=== PATIENT | male | born 1970 | race Two or more races ===

== ENCOUNTER 2019-08-29 18:27 | Emergency (ER) | payer SELFPAY ==
[~2019-08-29] VITALS: Ht 170.2 cm; Wt 86.2 kg
--- NOTE | 2019-08-29 18:31 | NUR ---
PT DUYEN LANDRY 89 From Home "Room mates called he was passed out known alcoholic" PT IS AAOX2, NOT IN RESPIRATORY DISTRESS, HOOKED TO MONITOR, KEPT RESTED AND COMFORTABLE, AWAITING ER MD FOR EVAL, WILL CONTINUE TO MONITOR.
[2019-08-29] MEDS ORDERED: IV NS 0.9% 1,000 ML BAG IV ONE ×2 (19:00→21:00)
--- NOTE | 2019-08-29 19:18 | NUR ---
PT BROUGHT TO CT.
--- NOTE | 2019-08-29 19:33 | NUR ---
PT BROUGHT BACK FROM CT.
--- NOTE | 2019-08-29 19:50 | NUR ---
BLOOD COLLECTED AND SENT TO LAB. [facility] AT BEDSIDE FOR BLOOD COLLECTION.
--- NOTE | 2019-08-29 19:55 | NUR ---
UPON RETURN FROM RADIOLOGY, PT SMELLS OF BM. UPON REMOVING PANTS, NOTED THAT HIS SCROTUM AND PENNIS IS SWOLLEN AND DISCOLORAED. NOTED BLACK SCROTUM AND TIP OF PENNIS IS BLACK WELL. PERINEAL REDNESS NOTED WHICH IS EXTENDING TO THE RLQ ABDOMEN TO THE FLANK AREA. MD WAS CALLED TO BEDSIDE FOR EVAL. ORDERS RECEIVED NOTED CARRIED OUT.
[2019-08-29 19:58] LABS: BASOPHILS % (AUTO) 0.1 % (0.0-2.0); EOSINOPHILS % (AUTO) 0.1 % (0.0-6.0); HEMATOCRIT 48 % (39-51); HEMOGLOBIN 16.2 g/dL (13.5-17.5); LYMPHOCYTES # (AUTO) 0.3 /CMM (0.8-4.8); LYMPHOCYTES % (AUTO) 2.2 % (20.0-44.0); MEAN CORPUSCULAR HGB CONC 34 g/dl (31.0-36.0); MEAN CORPUSCULAR VOLUME 97 fL (80-96); MONOCYTES % (AUTO) 0.3 % (2.0-12.0); NEUTROPHILS # (AUTO) 13.1 /CMM (1.8-8.9); NEUTROPHILS % (AUTO) 97.3 % (43.0-81.0); WHITE BLOOD COUNT (AUTO) 13.5 K/uL (4.3-11.0)
[2019-08-29 20:21] LABS: ALANINE AMINOTRANSFERASE 97 U/L (12-78); ALBUMIN 1.8 g/dL (3.4-5.0); ALKALINE PHOSPHATASE 76 U/L (46-116); ASPARTATE AMINOTRANSFERASE 154 U/L (15-37); BILIRUBIN,DIRECT 1.6 mg/dL (0.0-0.2); BILIRUBIN,TOTAL 2.8 mg/dL (0.2-1.0); CALCIUM, SERUM 7.9 mg/dL (8.5-10.1); CARBON DIOXIDE 17 mmol/L (21-32); CHLORIDE 84 mmol/L (98-107); CREATININE 2.8 mg/dL (0.6-1.3); GLUCOSE 165 mg/dL (74-106); POTASSIUM 4.1 mmol/L (3.5-5.1); SERUM AMMONIA 155 umol/L (11-32); TOTAL PROTEIN, SERUM 7.2 g/dL (6.4-8.2)
[2019-08-29] MEDS ORDERED: VANCOMYCIN 1 GM VIAL ONE (20:22)
[2019-08-29] MEDS ORDERED: PIPERACILLIN /TAZOBACTAM 3.375 G VIAL IV ONE (20:22)
--- NOTE | 2019-08-29 20:23 | NUR ---
[facility] CALLED. NO BEDS AVAILABLE. ER ON [facility].
--- NOTE | 2019-08-29 20:23 | NUR ---
CALLED [facility] SPOKE TO KAYKAY REGARDING [facility] STATES NO EMERGENCY SURGERY SERVICES AVAILABLE AT NIGHT.
--- NOTE | 2019-08-29 20:26 | NUR ---
XRAY AT BEDSIDE
[2019-08-29] MEDS ORDERED: PIPERACILLIN /TAZOBACTAM 3.375 G in IV D5W 50 ML IV ONE (20:30)
[2019-08-29] MEDS ORDERED: VANCOMYCIN 1 GM in IV D5W 250 ML IV ONE (20:30)
--- NOTE | 2019-08-29 20:30 | NUR ---
CALLED [facility] SPOKE TO KEANU REGARDING [facility] STATES NO UROLOGY SERVICE AVAILABLE.
--- NOTE | 2019-08-29 20:30 | NUR ---
ADDENDUM: Intravenous End Time Documentation: Zosyn 3.375 gram IVPB: start time:2029 ; end time: 2099 : IV site: # 20 Port # 1
--- NOTE | 2019-08-29 20:30 | NUR ---
BLOOD CULTURES COLLECTED AND SENT TO LAB. PT BROUGHT TO CT.
--- NOTE | 2019-08-29 20:31 | NUR ---
CALL [facility] SPOKE TO [facility] ([facility]) STATES NO ICU BED AVAILABLE.
[2019-08-29] MEDS ORDERED: CT SWABBABLE VALVE TRANS SET 1 EA INFUS.SET MC ONE (20:32)
[2019-08-29] MEDS ORDERED: IOHEXOL-300 100 ML VIAL IV ONE (20:32)
[2019-08-29] MEDS ORDERED: IV NS 0.9% 250 ML IV ONE (20:32)
--- NOTE | 2019-08-29 20:34 | NUR ---
[facility] NO ICU BEDS
[2019-08-29 20:40] LABS: ACETAMINOPHEN < 2 ug/ml (10-30); SALICYLATE < 2.8 mg/dL (2.8-20.0); SODIUM SERUM 115 mmol/L (136-145); UREA NITROGEN, BLOOD 84 mg/dL (7-18)
--- NOTE | 2019-08-29 20:46 | NUR ---
CALLED [facility] FOR THIS PATIENT, PER [facility] ED IS AT CAPACITY
[2019-08-29 20:47] LABS: ALCOHOL, BLOOD < 3 mg/dL (0-0)
--- NOTE | 2019-08-29 20:47 | NUR ---
SPOKE TO DEEPAK FROM [facility] STATES NO BEDS AVAILABLE AT THIS TIME AND WILL CALL BACK IF BED BECOME AVAILABLE.
--- NOTE | 2019-08-29 20:53 | NUR ---
[facility]IATED [facility] SPOKE WITH [facility]SE[facility] AND SAID WILL CALL IF HAVE CAPACITY
--- NOTE | 2019-08-29 20:54 | NUR ---
PT BROUGHT BACK FROM CT
[2019-08-29 21:15] LABS: PLATELET COUNT (AUTO) 39 /CMM (150-450)
--- NOTE | 2019-08-29 21:16 | NUR ---
[facility] CALLED. PER ETHAN, WILL CALL BACK WITH BED ASSIGNMENT
[2019-08-29 21:37] LABS: BILIRUBIN,DIRECT 1.6 mg/dL (0.0-0.2); BILIRUBIN,TOTAL 2.4 mg/dL (0.2-1.0); TOTAL PROTEIN, SERUM 5.7 g/dL (6.4-8.2)
[2019-08-29 21:38] LABS: ALBUMIN 1.4 g/dL (3.4-5.0)
--- NOTE | 2019-08-29 21:40 | NUR ---
[facility]: ICU BED 5S14. AWAITING [facility] ETA FOR ALS TRANSPORT.
--- NOTE | 2019-08-29 21:50 | NUR ---
[facility] NUMBER FOR REPORT: [phone]
[2019-08-29] MEDS ORDERED: IV LR 500 ML IV ONE (22:00)
--- NOTE | 2019-08-29 22:30 | NUR ---
Patient is resting comfortably.VSS. AT BEDSIDE.
--- NOTE | 2019-08-29 22:38 | NUR ---
[facility] [id number] ETA 1HR
--- NOTE | 2019-08-29 23:22 | NUR ---
Octavio voss in ED - 08/29/19 at 2342 by TRAVIS REPORT GIVEN TO THOMAS ROMO RN FOR [facility]. EMS AT BEDSIDE FOR TRANSPORT.
--- NOTE | 2019-08-29 23:22 | NUR ---
REPORT GIVEN TO THOMAS ROMO RN FOR [facility]. EMS AT BEDSIDE FOR TRANSPORT.
[2019-08-29 23:40] VITALS: BP 120/61
--- NOTE | 2019-08-29 23:57 | NUR ---
PT TRANSFERED TO [facility] PER [facility].
== END 2019-08-30 | disposition short-term general hospital (02) ==
LOC: ER 18:29
DX: R65.20 Severe sepsis without septic shock (principal); N49.3 Fournier gangrene
CPT/HCPCS: 36415; 70450; 71045; 72125; 74177; 80048; 80076 ×2; 80307; 80329; 82140; 82962; 83605 ×2; 84145; 84484; 85025; 85730; 87040 ×2; 87076; 93005; 96365; 96367; 99291; G0480; J2543 ×2; J3370; J7030 ×2; J7050; J7060; J7120; Q9967